=== PATIENT | male | born 1960 | race Caucasian/White ===

== ENCOUNTER 2016-10-24 20:20 | Emergency (ER) | payer MEDICAID, OTHER ==
[~2016-10-24] VITALS: Ht 167.6 cm; Wt 99.8 kg
--- NOTE | 2016-10-24 20:40 | NUR ---
TO BED 8 56 YO MALE PT BIBA SELF, PT C/O SI AND STATES HE WANTS TO WALK IN FRONT OF TRAFFIC. DENIES HI THIS TIME. WITH HX OF PSYCH. VSS. NONDIAPHORETIC. NAD NOTED. INITIATED SAFETY AND SUICIDAL PRECAUTIONS. WILL CLOSELY MONITOR.
--- NOTE | 2016-10-24 21:16 | NUR ---
die casting machine setter at bedside to draw blood.
[2016-10-24 21:23] LABS: BASOPHILS # (AUTO) 0.1 /CMM (0.0-0.2); BASOPHILS % (AUTO) 0.7 % (0.0-2.0); EOSINOPHILS # (AUTO) 0.2 /CMM (0.0-0.7); EOSINOPHILS % (AUTO) 3.3 % (0.0-6.0); HEMATOCRIT 40 % (39-51); HEMOGLOBIN 13.3 g/dL (13.5-17.5); LYMPHOCYTES % (AUTO) 26.6 % (20.0-44.0); MEAN CORPUSCULAR HEMOGLOBIN 29 PG (26.0-33.0); MEAN CORPUSCULAR HGB CONC 33 g/dl (31.0-36.0); MEAN CORPUSCULAR VOLUME 86 fL (80-96); MONOCYTES # (AUTO) 0.8 /CMM (0.1-1.30); NEUTROPHILS # (AUTO) 4.4 /CMM (1.8-8.9); NEUTROPHILS % (AUTO) 58.4 % (43.0-81.0); PLATELET COUNT (AUTO) 228 /CMM (150-450); RDW COEFFICIENT OF VARIATION 13.4 (11.5-15.0); RED BLOOD CELL COUNT(AUTO) 4.65 MIL/uL (4.5-6.0); WHITE BLOOD COUNT (AUTO) 7.5 K/uL (4.3-11.0)
[2016-10-24 21:32] LABS: APPEARANCE,URINE Clear (CLEAR); BILIRUBIN,URINE Negative (NEGATIVE); BLOOD, URINE Negative Ery/uL (NEGATIVE); COLOR,URINE Yellow (YELLOW); KETONES,URINE Negative (NEGATIVE); LEUKOCYTE ESTERASE ,URINE Negative (NEGATIVE); NITRITE, URINE Negative (NEGATIVE); PH,URINE 5.5 (5.0-8.0); PROTEIN,URINE Negative (NEGATIVE); UGLUCOSE 500 MG/DL mg/dL (NEGATIVE); UROBILINOGEN,URINE 0.2 EU/dL (0.2)
[2016-10-24 21:35] LABS: CALCIUM, SERUM 8.2 mg/dL (8.5-10.1); CARBON DIOXIDE 27 mmol/L (21-32); CHLORIDE 105 mmol/L (98-107); GLUCOSE 197 mg/dL (74-106); POTASSIUM 3.7 mmol/L (3.5-5.1); SODIUM SERUM 139 mmol/L (136-145); UREA NITROGEN, BLOOD 19 mg/dL (7-18)
[2016-10-24 21:41] LABS: ALANINE AMINOTRANSFERASE 61 U/L (12-78); ALBUMIN 3.5 g/dL (3.4-5.0); ALCOHOL, BLOOD < 3 mg/dL (0-0); ALKALINE PHOSPHATASE 68 U/L (46-116); ASPARTATE AMINOTRANSFERASE 41 U/L (15-37); BILIRUBIN,DIRECT 0.1 mg/dL (0.0-0.2); BILIRUBIN,TOTAL 0.4 mg/dL (0.2-1.0); TOTAL PROTEIN, SERUM 6.7 g/dL (6.4-8.2)
[2016-10-24 21:44] LABS: SALICYLATE 1.4 mg/dL (2.8-20.0)
[2016-10-24 21:45] LABS: ACETAMINOPHEN 0 ug/ml (10-30)
--- NOTE | 2016-10-24 23:25 | NUR ---
CALLED ART PROCESS CONSULTANT, HE SAID HE WOULD BE HERE SOON.
--- NOTE | 2016-10-25 01:43 | NUR ---
Niraj terry in ED - 10/25/16 at 0146 by ERIC pt accepted to [facility] by Dr Markham. # for report [phone] [id number]
--- NOTE | 2016-10-25 02:05 | NUR ---
pt accepted to [facility] by Dr Markham. # for report [phone] [id number]
--- NOTE | 2016-10-25 02:11 | NUR ---
Report given to Betsy from [facility] for bijan.
[2016-10-25 02:29] VITALS: BP 136/87
--- NOTE | 2016-10-25 02:32 | NUR ---
Report given to [facility]. Patient alert oriented with steady gait.
== END 2016-10-25 02:34 ==
LOC: ER 20:28
DX: R45.851 Suicidal ideations (principal); E11.9 Type 2 diabetes mellitus without complications; F41.9 Anxiety disorder, unspecified; I10 Essential (primary) hypertension; K21.9 Gastro-esophageal reflux disease without esophagitis
CPT/HCPCS: 36415; 80048-TC; 80076-TC; 80305; 81000-TC; 85025-TC; A4606; G0480; Z7610